=== PATIENT | male | born 1990 | race Caucasian/White ===

== ENCOUNTER 2016-05-21 16:01 | Emergency (ER) | payer OTHER ==
--- NOTE | 2016-05-21 16:18 | ED Physician Documentation ---
General Adult - HISTORIAN Historian: patient - HPI Chief Complaint: Nausea,Vomiting,Diarrhea Onset: days ago (2) Timing: still present Further Comments: yes (2 day hisotry of heachache, fever- low grade, chills, nasal drainage, no blood, has been clear. Mild cough, mild productive, having some mild chest pain. Nausea vomiting (x2) and some diarrhea. No skin rash noted.) Last known Well Date: 05/19/16 Last Known Well Time: 22:00 Last known Well Code/Unknown Code: Known - ROS CONST: fever, chills CVS/RESP: denies: chest pain - PAST HX Past History: none Other History: none Surgeries/Procedures: other (pylenidial cyst removed. ) Allergies/Adverse Reactions: Allergies Allergy/AdvReac Type Severity Reaction Status Date / Time amoxicillin [Amoxicillin] Allergy Intermediate Rash Verified 05/21/16 16:13 ciprofloxacin [From Cipro] AdvReac Nausea/Vomi Verified 05/21/16 16:13 ting ciprofloxacin HCl AdvReac Nausea/Vomi Verified 05/21/16 16:13 [From Cipro] ting Home Medications: Ambulatory Orders Medication Instructions Recorded NK [NK] 05/21/16 - SOCIAL HX Smoking History: greater than 1 pack/day Alcohol Use: occasionally Drug Use: none - FAMILY HX Family History: Yes (cancer lung, colon cancer, DM) - VITAL SIGNS Vital Signs: Vital Signs Temp Pulse Resp BP Pulse Ox 118/76 12/22/15 11:37 - REVIEWED ASSESSMENTS Nursing Assessment Reviewed: Yes Vitals Reviewed: Yes ED Results Lab/Radiology - Radiology Radiology Impressions: x-ray, normal bowel gas pattern, no abnl noted. CT scan of abd : normal General Adult Physical Exam - PHYSICAL EXAM GENERAL APPEARANCE: mild distress EENT: eye inspection normal, ENT inspection normal, pharynx normal, no signs of dehydration NECK: normal inspection, thyroid normal, supple. No: thyromegaly, lymphadenopathy, stiff neck RESPIRATORY: no resp distress, chest non-tender, breath sounds normal. No: wheezes, rales, rhonchi CVS: reg rate & rhythm, heart sounds normal, equal pulses, no murmur ABDOMEN: soft, no organomegaly, normal bowel sounds, no distension, tenderness ( diffuse, greatest over the right lower quadrant area. ), McBurney's point tenderne. No: rebound, distended, guarding BACK: normal inspection, no CVA tenderness SKIN: warm/dry, normal color EXTREMITIES: non-tender NEURO: oriented X3, CN's nml as tested, motor nml, sensation nml, mood/affect nml, cognition normal Discharge Clincal Impression: Viral gastroenteritis Referrals: Lidia Melo MD [Primary Care Provider] - 2 Days Additional Instructions: Take the Zofran as needed for nausea. Start on clear liquids for 24 hours. Check your temp several times a day. If you symptoms get worse or do not seem to improve to see your primary care provider or return to the ED. Home Medications: Ambulatory Orders NK [NK] 05/21/16 Condition: Stable Disposition: 01 HOME, SELF-CARE Decision to Admit: NO Date of Decison to Admit: 05/21/16 Decision Time: 18:14
[2016-05-21] MEDS ORDERED: 0.9 % SODIUM CHLORIDE 1,000 ML IV SCH (16:30)
[2016-05-21] MEDS ORDERED: 0.9 % SODIUM CHLORIDE 1,000 ML IV ONE (16:45)
[2016-05-21 17:17] LABS: BASOPHILS % 0.4 (0.0-1.5); EOSINOPHILS % 2.2 % (0.0-6.8); LYMPHOCYTES # 1.5 # k/uL (0.6-4.0); MEAN CORPUSCULAR HEMOGLOBIN 30.1 pg (28.0-34.0); MONOCYTES # 0.3 # k/uL (0.0-0.9); MONOCYTES % 3.4 % (0.0-11.0); NEUTROPHILS # 6.1 # k/uL (1.4-7.7)
[2016-05-21] MEDS ORDERED: ONDANSETRON HCL/PF 4 MG/ 2ML VIAL IVP ONE (17:22)
[2016-05-21 17:30] LABS: eGFR (African) > 60; eGFR (Non-African) > 60
--- NOTE | 2016-05-21 17:40 | Diagnostic Imaging Report ---
NATALIE SIMPSON~ [facility] [address] [facility] [address] [address] ~ ~ ~ ~ Report Submission Date: May 21, 2016 5:14:35 PM TRIMMING OPERATOR Patient ~ Study Name: BLAZE SURESH ~ Date: May 21, 2016 4:44:18 PM TRIMMING OPERATOR ~ Modality Type: CR Gender: M ~ Description: CHEST,ABDOMEN : 88 ~ Institution: [facility] Physician: NATALIE SIMPSON ~ ~ ~ ~ Abdominal series with chest History: Right lower quadrant pain, nausea, vomiting, diarrhea Findings: A single view of the chest reveals hyperinflation and normal heart size. Upright and supine abdominal radiographs reveal a normal bowel gas pattern without obstruction or free air. Pelvic calcifications likely represent phleboliths. Impression: Normal bowel gas pattern and hyperinflation. ~ Electronically signed on May 21, 2016 5:14:35 PM TRIMMING OPERATOR by: Trent VALENTINO
--- NOTE | 2016-05-21 18:38 | Diagnostic Imaging Report ---
NATALIE SIMPSON~ [facility] [address] [facility] [address] [place] [address]. [id number] ~ ~ ~ ~ Report Submission Date: May 21, 2016 6:28:19 PM VEHICLE OPERATOR Patient ~ Study Name: BLAZE SURESH ~ Date: May 21, 2016 6:06:47 PM VEHICLE OPERATOR ~ Modality Type: CT\SR Gender: M ~ Description: CT ABD & PELVIS W/O CO : 88 ~ Institution: [facility] Physician: NATALIE SIMPSON ~ ~ ~ ~ Computed tomography of the abdomen and pelvis without contrast History: Right lower quadrant pain, nausea, vomiting, diarrhea Findings: Transverse abdomen and pelvis sections are obtained without contrast and are compared to the October 12, 2015 scan. The gallbladder is partially contracted. The kidneys, adrenals, spleen, pancreas, liver, great vessels, and mesenteric structures are unremarkable. Bowel loops exhibit normal caliber and wall thickness. No acute inflammatory or a obstructive process observed. Pelvic sections reveal unremarkable bowel loops including a normal appendix. The prostate and seminal vesicles are normal in size. The urinary bladder is unremarkable. Impression: 1. Normal abdomen. 2. Normal pelvis. ~ Electronically signed on May 21, 2016 6:28:19 PM VEHICLE OPERATOR by: Trent VALENTINO
[2016-05-21 18:46] VITALS: BP 112/74
[2016-05-22 05:28] LABS: APPEARANCE,URINE CLEAR (CLEAR); COLOR,URINE YELLOW (YELLOW); OCCULT BLOOD,URINE TRACE-INTACT (NEGATIVE); UROBILINOGEN URINE 0.2 Eu (0.2-1.0)
== END 2016-05-21 18:44 | disposition home or self-care (01) ==
LOC: ED 16:01
DX: A08.4 Viral intestinal infection, unspecified (principal)
CPT/HCPCS: 74022; 74176; 80053; 81002; 82150; 85025; 87400; J2405; J7030; 96361; 96374; 99283; S1016

== ENCOUNTER 2016-07-30 19:26 | Emergency (ER) | payer OTHER ==
[2016-07-30 19:42] VITALS: BP 122/74
--- NOTE | 2016-07-30 19:48 | ED Physician Documentation ---
General Adult - HISTORIAN Historian: patient - HPI Stated Complaint: Lt muscular neck pain/stiffness Chief Complaint: Neck Injury Onset: days ago (1 week) Timing: still present Severity: moderate Further Comments: yes (Patient slept wrong and developed some pain in the right lateral neck area. Slowly got better this week and felt good today. While splitting fire wood today had a sudden onset of pain in the neck again, worse then it had been.) - ROS CONST: no problems - PAST HX Past History: other (sebaceous cyst) Surgeries/Procedures: none Allergies/Adverse Reactions: Allergies Allergy/AdvReac Type Severity Reaction Status Date / Time amoxicillin [Amoxicillin] Allergy Intermediate Rash Verified 07/30/16 19:45 ciprofloxacin [From Cipro] AdvReac Nausea/Vomi Verified 07/30/16 19:45 ting ciprofloxacin HCl AdvReac Nausea/Vomi Verified 07/30/16 19:45 [From Cipro] ting Home Medications: Ambulatory Orders Medication Instructions Recorded Buspirone HCl [Buspar] 10 mg PO PRN PRN 07/30/16 Methocarbamol [Robaxin] 500 mg PO QID PRN #30 tablet 07/30/16 QUEtiapine FUMARATE [Seroquel] 25 mg PO HS 07/30/16 Venlafaxine HCl [Effexor] 37.5 mg PO BID 07/30/16 - SOCIAL HX Smoking History: greater than 1 pack/day Alcohol Use: occasionally Drug Use: none - FAMILY HX Family History: No - VITAL SIGNS Vital Signs: Vital Signs Temp Pulse Resp BP Pulse Ox 89 16 122/74 97 07/30/16 19:33 07/30/16 19:33 07/30/16 19:33 07/30/16 19:33 - REVIEWED ASSESSMENTS Nursing Assessment Reviewed: Yes Vitals Reviewed: Yes General Adult Physical Exam - PHYSICAL EXAM GENERAL APPEARANCE: mild distress NECK: thyroid normal, other (tenderness to palpation over the right trapiziem). No: supple RESPIRATORY: no resp distress, chest non-tender, breath sounds normal. No: wheezes, rales, rhonchi CVS: reg rate & rhythm, heart sounds normal, equal pulses SKIN: warm/dry, normal color EXTREMITIES: non-tender, normal range of motion NEURO: oriented X3, CN's nml as tested, motor nml, sensation nml, mood/affect nml, cognition normal. No: asymmetric reflexes Discharge Clincal Impression: Cervical muscle strain Qualifiers: Encounter type: initial encounter Qualified Code(s): S16.1XXA - Strain of muscle, fascia and tendon at neck level, initial encounter Additional Instructions: Cool compress to the neck area. Take Tylenol as directed. Take Robaxin as a muscle relaxant as prescribed. Do neck exercises. Home Medications: Ambulatory Orders Buspirone HCl [Buspar] 10 mg PO PRN PRN 07/30/16 Methocarbamol [Robaxin] 500 mg PO QID PRN #30 tablet 07/30/16 QUEtiapine FUMARATE [Seroquel] 25 mg PO HS 07/30/16 Venlafaxine HCl [Effexor] 37.5 mg PO BID 07/30/16 Condition: Stable Disposition: 01 HOME, SELF-CARE Decision to Admit: NO Date of Decison to Admit: 07/30/16 Decision Time: 19:54
[2016-07-30] MEDS ORDERED: KETOROLAC TROMETHAMINE 60 MG/2 ML VIAL IM ONE (19:56)
[2016-07-30] MEDS ORDERED: KETOROLAC TROMETHAMINE 60 MG/2 ML VIAL ONE (19:57)
== END 2016-07-30 20:10 | disposition home or self-care (01) ==
LOC: ED 19:26
DX: S16.1XXA Strain of muscle, fascia and tendon at neck level, initial encounter (principal); X58.XXXA Exposure to other specified factors, initial encounter; Y93.9 Activity, unspecified; Y99.9 Unspecified external cause status
CPT/HCPCS: J1885 ×2; 96372; 99283

== ENCOUNTER 2017-01-03 09:00 | Emergency (ER) | payer OTHER ==
[2017-01-03 09:19] VITALS: BP 117/74
--- NOTE | 2017-01-03 09:33 | ED Physician Documentation ---
Skin Rash - HISTORIAN Historian: patient - HPI Stated Complaint: cyst inner rught and left thigh Chief Complaint: Skin Rash Additional Information: history of same. Tender indurated areas inner thighs bilat. not fluculent. Not pointing. firm erythema. no abscess. 2-3 cm in size Onset: days ago Timing: still present Duration: persistent since Location: RLE, LLE Quality: painful Identified Cause?: No Context: Medication Exposure: none Context: Food Exposure: none Further Comments: no - ROS CONST: none CVS/RESP: none EYES/ENT: none GI/: none MS/SKIN/LYMPH: none NEURO/PSYCH: none - PAST HX Past History: other (similar) Other History: none Surgeries/Procedures: No Immunizations: UTD Allergies/Adverse Reactions: Allergies Allergy/AdvReac Type Severity Reaction Status Date / Time amoxicillin [Amoxicillin] Allergy Intermediate Rash Verified 01/03/17 09:19 ciprofloxacin [From Cipro] AdvReac Nausea/Vomi Verified 01/03/17 09:19 ting ciprofloxacin HCl AdvReac Nausea/Vomi Verified 01/03/17 09:19 [From Cipro] ting Home Medications: Ambulatory Orders Medication Instructions Recorded NK [NK] 01/03/17 - SOCIAL HX Smoking History: cigarettes Alcohol Use: none Drug Use: none - FAMILY HX Family History: none - VITAL SIGNS Vital Signs: Vital Signs Temp Pulse Resp BP Pulse Ox 99.0 F 82 20 117/74 98 01/03/17 09:00 01/03/17 09:00 01/03/17 09:00 01/03/17 09:00 01/03/17 09:00 - REVIEWED ASSESSMENTS Nursing Assessment Reviewed: Yes Vitals Reviewed: Yes Progress - Progress Progress: patient told nurse he thought we were not treating this properly, that they "needed to be opened up." Niether lesion has fluculent area. incising will not help. These can be effectively treated with medication. They are not yet abscessed. He has decided he does not want the treatment I recommend. And has chosen to sign the AMA form. Skin Rash Physical Exam - EXAM General Appearance: no acute distress, alert Location: other (upper inner thigh bilateral) Character: erythematous. No: vesicular, bullous Symptoms: warmth, tenderness, swelling, induration Extremities: no edema EENT: eyes nml inspection Respiratory: no resp distress Abdomen: non-tender Neuro/Psych: oriented x3 Discharge Clincal Impression: Cellulitis Qualifiers: Site of cellulitis: extremity Site of cellulitis of extremity: lower extremity Laterality: unspecified laterality Qualified Code(s): L03.119 - Cellulitis of unspecified part of limb Referrals: Lidia Melo MD [Primary Care Provider] - 2 Days Condition: Stable Disposition: 07 AGAINST MEDICAL ADVICE Decision to Admit: NO Date of Decison to Admit: 01/03/17 Decision Time: 09:36
== END 2017-01-03 09:37 | disposition left against medical advice (07) ==
LOC: ED 09:00
DX: L03.119 Cellulitis of unspecified part of limb (principal); Z53.21 Procedure and treatment not carried out due to patient leaving prior to being seen by health care provider
CPT/HCPCS: 99282